=== PATIENT | male | born 1970 | race Caucasian/White ===

== ENCOUNTER 2017-11-16 20:30 | Emergency (ER) | payer OTHER ==
[~2017-11-16] VITALS: Ht 185.4 cm; Wt 99.8 kg
[~2017-11-16 20:30] MED LIST: RISP2 PO
[2017-11-16] MEDS ORDERED: Norco 5-325 Ta1 EACH PO (22:08)
== END 2017-11-16 22:18 | disposition home or self-care (01) ==
LOC: ER 20:30
DX: S69.91XA Unspecified injury of right wrist, hand and finger(s), initial encounter (principal); Z79.899 Other long term (current) drug therapy; F31.9 Bipolar disorder, unspecified; F17.210 Nicotine dependence, cigarettes, uncomplicated; V19.9XXA Pedal cyclist (driver) (passenger) injured in unspecified traffic accident, initial encounter
CPT/HCPCS: 29125; 73130; 99283; L3917

== ENCOUNTER → 2017-12-06 | Outpatient (CLI) | payer OTHER ==
[~2017-12-06] MED LIST changes: +Norco 5-325 Ta1 EACH PO
[2017-12-06 17:48] LABS: U Amphetamine Screen Not Detected; U Barbituate Screen Not Detected; U Benzodiazapine Screen Not Detected; U Buprenorphine Screen Not Detected; U Cannabinoids Screen DETECTED; U Cocaine Screen Not Detected; U Methadone Screen Not Detected; U Methamphetamine Screen DETECTED; U Opiates Screen Not Detected; U Oxycodone Screen Not Detected; U Phencyclidine Screen Not Detected; U Propoxyphene Screen Not Detected
[2017-12-08 23:28] LABS: MDA Not Detected (NOTDET); MDEA Not Detected (NOTDET); MDMA Not Detected (NOTDET)
== END ==
LOC: LAB SRC 13:09
PROVIDERS: Nurse Practitioner Family
DX: B19.20 Unspecified viral hepatitis C without hepatic coma (principal)
CPT/HCPCS: G0480

== ENCOUNTER 2019-06-26 08:28 | Emergency (ER) | payer OTHER ==
[~2019-06-26] VITALS: Ht 190.5 cm; Wt 108.9 kg
[2019-06-26] MEDS ORDERED: Prozac40 MG PO (08:54)
[2019-06-26] MEDS ORDERED: Bactrim Ds Tab1 EACH PO (09:42)
[2019-06-26] MEDS ORDERED: CEPH500 PO (09:42)
== END 2019-06-26 10:14 | disposition home or self-care (01) ==
LOC: ER 08:28
DX: L02.414 Cutaneous abscess of left upper limb (principal); L03.114 Cellulitis of left upper limb; F17.210 Nicotine dependence, cigarettes, uncomplicated; Z79.899 Other long term (current) drug therapy
CPT/HCPCS: 10061; 99283-25

== ENCOUNTER 2021-12-18 21:24 | Emergency (ER) | payer OTHER ==
[~2021-12-18] VITALS: Ht 188 cm; Wt 108.9 kg
[~2021-12-18 21:24] MED LIST changes: +Bactrim Ds Tab1 EACH PO; +CEPH500 PO; +Prozac40 MG PO
[2021-12-19] MEDS ORDERED: NARCAN4 M1 (00:11)
== END 2021-12-19 00:43 | disposition home or self-care (01) ==
LOC: ER 21:24
DX: T40.411A Poisoning by fentanyl or fentanyl analogs, accidental (unintentional), initial encounter (principal); T40.491A Poisoning by other synthetic narcotics, accidental (unintentional), initial encounter; F17.210 Nicotine dependence, cigarettes, uncomplicated; T40.2X1A Poisoning by other opioids, accidental (unintentional), initial encounter
CPT/HCPCS: 93005; 93010; 96374; 96375; 96376; 99284-25; A9270; J1885; J2060; J2550

== ENCOUNTER 2023-06-05 18:35 | Emergency (ER) | payer OTHER ==
[~2023-06-05] VITALS: Ht 188 cm; Wt 117.9 kg
[~2023-06-05 18:35] MED LIST changes: +NARCAN4 M1
[2023-06-05 18:59] VITALS: BP 131/95
[2023-06-05] MEDS ORDERED: CEPH500 PO (19:53)
== END 2023-06-05 20:00 | disposition home or self-care (01) ==
LOC: ER 18:35
DX: S61.411A Laceration without foreign body of right hand, initial encounter (principal); F17.210 Nicotine dependence, cigarettes, uncomplicated; W26.8XXA Contact with other sharp object(s), not elsewhere classified, initial encounter; Z79.899 Other long term (current) drug therapy
CPT/HCPCS: 99283